=== PATIENT | female | born 1965 | race Caucasian/White ===

== ENCOUNTER 2023-09-17 12:53 | Outpatient (RCR) | payer BC, SELFPAY ==
[2023-09-03] MEDS: PROLASTIN C 80 MG IV (15:32)
[2023-09-03 15:38] VITALS: BP 128/72
[2023-09-10 07:55] VITALS: BP 123/74
[2023-09-10] MEDS: PROLASTIN C 80 MG IV (08:05)
[2023-09-10 08:14] VITALS: BMI 26.8
[2023-09-17 13:30] VITALS: BP 130/51
[2023-09-17] MEDS: PROLASTIN C 80 MG IV (13:30)
== END 2023-09-17 23:59 | disposition home or self-care (01) ==
LOC: OID 12:53
PROVIDERS: ATTENDING PHYSICIAN Internal Medicine Critical Care Medicine; FAMILY PHYSICIAN Family Medicine; OTHER PHYSICIAN Internal Medicine Gastroenterology
DX: E88.01 Alpha-1-antitrypsin deficiency (principal); J44.9 Chronic obstructive pulmonary disease, unspecified; J45.30 Mild persistent asthma, uncomplicated
CPT/HCPCS: 96365; J0256

== ENCOUNTER 2023-10-15 11:24 | Outpatient (RCR) | payer BC, SELFPAY ==
[2023-09-24] MEDS: PROLASTIN C 80 MG IV (11:55)
[2023-09-24 12:01] VITALS: BP 119/89
[2023-10-01 11:35] VITALS: BP 117/61
[2023-10-01] MEDS: PROLASTIN C 80 MG IV (11:46)
[2023-10-01 11:50] VITALS: BMI 26.9
[2023-10-15 11:37] VITALS: BP 106/65
[2023-10-15] MEDS: PROLASTIN C 80 MG IV (12:13)
== END 2023-10-18 23:59 | disposition home or self-care (01) ==
LOC: OID 11:24
PROVIDERS: ATTENDING PHYSICIAN Internal Medicine Critical Care Medicine; FAMILY PHYSICIAN Family Medicine; OTHER PHYSICIAN Internal Medicine Gastroenterology
DX: E88.01 Alpha-1-antitrypsin deficiency (principal); J44.9 Chronic obstructive pulmonary disease, unspecified
CPT/HCPCS: 96365; J0256

== ENCOUNTER 2023-11-12 11:24 | Outpatient (RCR) | payer BC, SELFPAY ==
[2023-10-29 11:30] VITALS: BP 107/63
[2023-10-29] MEDS: PROLASTIN C 80 MG IV (11:38)
[2023-11-05 11:28] VITALS: BP 96/66
[2023-11-05] MEDS: PROLASTIN C 80 MG IV (11:49)
[2023-11-12 11:45] VITALS: BP 99/63
[2023-11-12] MEDS: PROLASTIN C 80 MG IV (12:00)
== END 2023-11-12 14:34 | disposition home or self-care (01) ==
LOC: OID 11:24
PROVIDERS: ATTENDING PHYSICIAN Internal Medicine Critical Care Medicine; FAMILY PHYSICIAN Family Medicine; OTHER PHYSICIAN Internal Medicine Gastroenterology
DX: E88.01 Alpha-1-antitrypsin deficiency (principal); J45.30 Mild persistent asthma, uncomplicated; J44.9 Chronic obstructive pulmonary disease, unspecified
CPT/HCPCS: 96365; J0256

== ENCOUNTER 2023-12-10 11:29 | Outpatient (RCR) | payer BC, SELFPAY ==
[2023-11-19] MEDS: PROLASTIN C 80 MG IV (11:47)
[2023-11-19 11:52] VITALS: BP 107/74
[2023-12-03 11:00] VITALS: BP 117/43
[2023-12-03] MEDS: PROLASTIN C 80 MG IV (11:53)
[2023-12-10 11:35] VITALS: BP 117/63
[2023-12-10 11:45] VITALS: BMI 26.6
[2023-12-10] MEDS: PROLASTIN C 80 MG IV (11:50)
== END 2023-12-11 09:36 | disposition home or self-care (01) ==
LOC: OID 11:29
PROVIDERS: ATTENDING PHYSICIAN Internal Medicine Critical Care Medicine; FAMILY PHYSICIAN Family Medicine; OTHER PHYSICIAN Internal Medicine Gastroenterology
DX: E88.01 Alpha-1-antitrypsin deficiency (principal); J44.9 Chronic obstructive pulmonary disease, unspecified; J45.30 Mild persistent asthma, uncomplicated; Z14.8 Genetic carrier of other disease
CPT/HCPCS: 96365; J0256

== ENCOUNTER 2024-01-14 11:22 | Outpatient (RCR) | payer BC, SELFPAY ==
[2023-12-24 11:28] VITALS: BP 110/68
[2023-12-24] MEDS: PROLASTIN C 80 MG IV (11:41)
[2023-12-31 11:30] VITALS: BP 116/76
[2023-12-31] MEDS: PROLASTIN C 80 MG IV (11:51)
[2023-12-31 11:55] VITALS: BMI 26.6
[2024-01-07 11:35] VITALS: BP 115/79
[2024-01-07] MEDS: PROLASTIN C 80 MG IV (11:57)
[2024-01-07 12:01] VITALS: BMI 26.6
[2024-01-14 11:25] VITALS: BP 145/60; BMI 26.8
[2024-01-14] MEDS: PROLASTIN C 80 MG IV (11:43)
== END 2024-01-15 15:02 | disposition home or self-care (01) ==
LOC: OID 11:22
PROVIDERS: ATTENDING PHYSICIAN Internal Medicine Critical Care Medicine; FAMILY PHYSICIAN Family Medicine; OTHER PHYSICIAN Internal Medicine Gastroenterology
DX: E88.01 Alpha-1-antitrypsin deficiency (principal); J44.9 Chronic obstructive pulmonary disease, unspecified; J45.30 Mild persistent asthma, uncomplicated; Z14.8 Genetic carrier of other disease
CPT/HCPCS: 96365; J0256

== ENCOUNTER 2024-02-11 11:24 | Outpatient (RCR) | payer BC, SELFPAY ==
[2024-02-04 11:30] VITALS: BP 114/60
[2024-02-04] MEDS: PROLASTIN C 80 MG IV (11:52)
[2024-02-04 11:56] VITALS: BMI 26.8
[2024-02-11 11:40] VITALS: BP 134/64
[2024-02-11] MEDS: PROLASTIN C 80 MG IV (11:57)
== END 2024-02-12 08:11 | disposition home or self-care (01) ==
LOC: OID 11:24
PROVIDERS: ATTENDING PHYSICIAN Internal Medicine Critical Care Medicine; FAMILY PHYSICIAN Family Medicine; OTHER PHYSICIAN Internal Medicine Gastroenterology
DX: E88.01 Alpha-1-antitrypsin deficiency (principal); Z14.8 Genetic carrier of other disease; J44.9 Chronic obstructive pulmonary disease, unspecified; J45.30 Mild persistent asthma, uncomplicated
CPT/HCPCS: 96365; J0256

== ENCOUNTER 2024-03-17 11:23 | Outpatient (RCR) | payer BC, SELFPAY ==
[2024-02-18 11:35] VITALS: BP 130/62
[2024-02-18] MEDS: PROLASTIN C 80 MG IV (11:49)
[2024-02-18 12:00] VITALS: BMI 26.8
[2024-02-26 10:25] VITALS: BP 116/77
[2024-02-26] MEDS: PROLASTIN C 80 MG IV (10:44)
[2024-03-17] MEDS: PROLASTIN C 80 MG IV (11:48)
[2024-03-17 12:04] VITALS: BP 107/61
== END 2024-03-17 15:39 | disposition home or self-care (01) ==
LOC: OID 11:23
PROVIDERS: ATTENDING PHYSICIAN Internal Medicine Critical Care Medicine; FAMILY PHYSICIAN Family Medicine; OTHER PHYSICIAN Internal Medicine Gastroenterology
DX: E88.01 Alpha-1-antitrypsin deficiency (principal); Z14.8 Genetic carrier of other disease; J45.30 Mild persistent asthma, uncomplicated; J44.9 Chronic obstructive pulmonary disease, unspecified; J98.4 Other disorders of lung
CPT/HCPCS: 96365; J0256

== ENCOUNTER 2024-04-14 11:27 | Outpatient (RCR) | payer BC, SELFPAY ==
[2024-03-24] MEDS: PROLASTIN C 80 MG IV (12:03)
[2024-03-24 12:08] VITALS: BP 111/60
[2024-03-31 11:51] VITALS: BP 119/69
[2024-03-31] MEDS: PROLASTIN C 80 MG IV (12:04)
[2024-04-14] MEDS: PROLASTIN C 80 MG IV (11:52)
[2024-04-14 11:58] VITALS: BP 128/42
== END 2024-04-15 09:40 | disposition home or self-care (01) ==
LOC: OID 11:27
PROVIDERS: ATTENDING PHYSICIAN Internal Medicine Critical Care Medicine; FAMILY PHYSICIAN Family Medicine; OTHER PHYSICIAN Internal Medicine Gastroenterology
DX: E88.01 Alpha-1-antitrypsin deficiency (principal); Z14.8 Genetic carrier of other disease; J44.9 Chronic obstructive pulmonary disease, unspecified
CPT/HCPCS: 96365; J0256

== ENCOUNTER 2024-05-12 11:22 | Outpatient (RCR) | payer BC, SELFPAY ==
[2024-04-28 11:38] VITALS: BP 116/64
[2024-04-28] MEDS: PROLASTIN C 80 MG IV (11:48)
[2024-05-05 11:30] VITALS: BP 128/69
[2024-05-05] MEDS: PROLASTIN C 80 MG IV (11:49)
[2024-05-05 11:53] VITALS: BMI 26.5
[2024-05-12 11:30] VITALS: BP 118/66
[2024-05-12] MEDS: PROLASTIN C 80 MG IV (11:55)
== END 2024-05-19 23:59 | disposition home or self-care (01) ==
LOC: OID 11:22
PROVIDERS: ATTENDING PHYSICIAN Internal Medicine Critical Care Medicine
DX: E88.01 Alpha-1-antitrypsin deficiency (principal); Z14.8 Genetic carrier of other disease
CPT/HCPCS: 96365; J0256

== ENCOUNTER 2024-06-15 11:22 | Outpatient (RCR) | payer BC, SELFPAY ==
[2024-05-26 11:35] VITALS: BP 104/56
[2024-05-26] MEDS: PROLASTIN C 80 MG IV (11:46)
[2024-06-02 11:35] VITALS: BP 117/72
[2024-06-02] MEDS: PROLASTIN C 80 MG IV (11:45)
[2024-06-15 11:30] VITALS: BP 113/65
[2024-06-15] MEDS: PROLASTIN C 80 MG IV (11:52)
== END 2024-06-17 08:34 | disposition home or self-care (01) ==
LOC: OID 11:22
PROVIDERS: ATTENDING PHYSICIAN Internal Medicine Critical Care Medicine
DX: E88.01 Alpha-1-antitrypsin deficiency (principal); Z14.8 Genetic carrier of other disease
CPT/HCPCS: 96365; J0256

== ENCOUNTER 2024-07-07 11:19 | Outpatient (RCR) | payer BC, SELFPAY ==
[2024-06-22] MEDS: PROLASTIN C 80 MG IV (10:15)
[2024-06-22 10:19] VITALS: BP 107/68
[2024-06-22 11:10] LABS: ALT (SGPT) 30 U/L (0-35); AST (SGOT) 33 U/L (14-36); Albumin 4.6 g/dl (3.5-5.0); Alkaline Phosphatase 65 U/L (38-126); Direct Bilirubin 0.3 mg/dl (0.0-0.4); HDL Cholesterol 73 mg/dl; LDL Cholesterol, Calculated 177 mg/dl; Total Bilirubin 1.2 mg/dl (0.2-1.3); Total Cholesterol 269 mg/dl (50-199); Total Protein 7.5 g/dl (6.3-8.2); Triglyceride 98 mg/dl (10-149); Very Low Density Lipoprotein 19 mg/dl (0-30)
[2024-06-22 11:39] LABS: TSH Reflex To Free T4 1.43 uIU/ml (0.47-4.68)
[2024-06-30 11:25] VITALS: BP 101/62
[2024-06-30] MEDS: PROLASTIN C 80 MG IV (11:43)
[2024-07-07 11:30] VITALS: BP 127/51
[2024-07-07] MEDS: PROLASTIN C 80 MG IV (11:42)
== END 2024-07-08 10:56 | disposition home or self-care (01) ==
LOC: OID 11:19
PROVIDERS: Family Medicine; ATTENDING PHYSICIAN Internal Medicine Critical Care Medicine
DX: E88.01 Alpha-1-antitrypsin deficiency (principal); Z14.8 Genetic carrier of other disease
CPT/HCPCS: 36415; 80061; 80076; 84443; 96365; J0256

== ENCOUNTER 2024-08-18 11:23 | Outpatient (RCR) | payer BC, SELFPAY ==
[2024-07-21] MEDS: PROLASTIN C 80 MG IV (11:39)
[2024-07-21 11:40] VITALS: BP 126/52
[2024-07-29] MEDS: PROLASTIN C 80 MG IV (11:51)
[2024-07-29 11:55] VITALS: BP 112/60
[2024-08-04] MEDS: PROLASTIN C 80 MG IV (11:56)
[2024-08-04 12:01] VITALS: BP 126/74
[2024-08-11] MEDS: PROLASTIN C 80 MG IV (12:05)
[2024-08-11 12:09] VITALS: BP 121/57
[2024-08-18 11:30] VITALS: BP 118/66
[2024-08-18] MEDS: PROLASTIN C 80 MG IV (11:44)
== END 2024-08-19 09:38 | disposition home or self-care (01) ==
LOC: OID 11:23
PROVIDERS: ATTENDING PHYSICIAN Internal Medicine Critical Care Medicine; FAMILY PHYSICIAN Family Medicine
DX: E88.01 Alpha-1-antitrypsin deficiency (principal); Z14.8 Genetic carrier of other disease
CPT/HCPCS: 96365; J0256

== ENCOUNTER 2024-09-15 11:30 | Outpatient (RCR) | payer BC, SELFPAY ==
[2024-09-01 11:35] VITALS: BP 102/65
[2024-09-01] MEDS: PROLASTIN C 80 MG IV (11:42)
[2024-09-01 11:45] VITALS: BMI 27.7
[2024-09-08 11:40] VITALS: BP 115/87
[2024-09-08] MEDS: PROLASTIN C 80 MG IV (11:53)
[2024-09-08 12:00] VITALS: BMI 27.7
[2024-09-15 11:45] VITALS: BP 107/64
[2024-09-15] MEDS: PROLASTIN C 80 MG IV (11:54)
[2024-09-15 11:58] VITALS: BMI 27.6
== END 2024-09-16 08:39 | disposition home or self-care (01) ==
LOC: OID 11:30
PROVIDERS: ATTENDING PHYSICIAN Internal Medicine Critical Care Medicine; FAMILY PHYSICIAN Family Medicine
DX: E88.01 Alpha-1-antitrypsin deficiency (principal); Z14.8 Genetic carrier of other disease
CPT/HCPCS: 96365; J0256

== ENCOUNTER 2024-10-13 11:27 | Outpatient (RCR) | payer BC, SELFPAY ==
[2024-09-23 11:40] VITALS: BP 105/69
[2024-09-23] MEDS: PROLASTIN C 80 MG IV (11:46)
[2024-10-06 11:35] VITALS: BP 107/67
[2024-10-06] MEDS: PROLASTIN C 80 MG IV (11:52)
[2024-10-06 11:56] VITALS: BMI 27.6
[2024-10-13 11:36] VITALS: BP 125/65
[2024-10-13] MEDS: PROLASTIN C 80 MG IV (11:51)
== END 2024-10-14 08:18 | disposition home or self-care (01) ==
LOC: OID 11:27
PROVIDERS: ATTENDING PHYSICIAN Internal Medicine Critical Care Medicine; FAMILY PHYSICIAN Family Medicine
DX: E88.01 Alpha-1-antitrypsin deficiency (principal); Z14.8 Genetic carrier of other disease
CPT/HCPCS: 96365; J0256

== ENCOUNTER 2024-11-10 11:21 | Outpatient (RCR) | payer BC, SELFPAY ==
[2024-10-20 11:41] VITALS: BP 121/70
[2024-10-20] MEDS: PROLASTIN C 80 MG IV (11:54)
[2024-11-03 11:49] VITALS: BP 105/57
[2024-11-03] MEDS: PROLASTIN C 80 MG IV (12:01)
[2024-11-03 12:26] VITALS: BP 125/66
[2024-11-10 11:35] VITALS: BP 105/63
[2024-11-10] MEDS: PROLASTIN C 80 MG IV (11:47)
== END 2024-11-11 10:57 | disposition home or self-care (01) ==
LOC: OID 11:21
PROVIDERS: ATTENDING PHYSICIAN Internal Medicine Critical Care Medicine; FAMILY PHYSICIAN Family Medicine
DX: E88.01 Alpha-1-antitrypsin deficiency (principal); Z14.8 Genetic carrier of other disease
CPT/HCPCS: 96365; J0256

== ENCOUNTER 2024-12-08 11:14 | Outpatient (RCR) | payer BC, SELFPAY ==
[2024-11-24 11:49] VITALS: BP 116/69
[2024-11-24] MEDS: PROLASTIN C 80 MG IV (12:04)
[2024-12-08] MEDS: PROLASTIN C 80 MG IV (11:36)
[2024-12-08 11:41] VITALS: BP 108/61
== END 2024-12-15 15:26 | disposition home or self-care (01) ==
LOC: OID 11:14
PROVIDERS: ATTENDING PHYSICIAN Internal Medicine Critical Care Medicine; FAMILY PHYSICIAN Family Medicine
DX: E88.01 Alpha-1-antitrypsin deficiency (principal); Z14.8 Genetic carrier of other disease
CPT/HCPCS: 96365; J0256

== ENCOUNTER 2025-01-12 11:24 | Outpatient (RCR) | payer BC, SELFPAY ==
[2024-12-22] MEDS: PROLASTIN C 80 MG IV (11:54)
[2024-12-22 11:59] VITALS: BP 107/76
[2024-12-30 11:30] VITALS: BP 114/71
[2024-12-30] MEDS: PROLASTIN C 80 MG IV (11:54)
[2025-01-05] MEDS: PROLASTIN C 80 MG IV (11:46)
[2025-01-05 12:05] VITALS: BP 101/69
[2025-01-12 11:34] VITALS: BP 112/60
[2025-01-12] MEDS: PROLASTIN C 80 MG IV (11:52)
== END 2025-01-13 08:40 | disposition home or self-care (01) ==
LOC: OID 11:24
PROVIDERS: ATTENDING PHYSICIAN Internal Medicine Critical Care Medicine; FAMILY PHYSICIAN Family Medicine
DX: E88.01 Alpha-1-antitrypsin deficiency (principal); Z14.8 Genetic carrier of other disease
CPT/HCPCS: 96365; J0256

== ENCOUNTER 2025-02-16 11:25 | Outpatient (RCR) | payer BC, SELFPAY ==
[2025-01-26 11:45] VITALS: BP 101/63
[2025-01-26] MEDS: PROLASTIN C 80 MG IV (12:00)
[2025-02-02 11:36] VITALS: BP 104/70
[2025-02-02] MEDS: PROLASTIN C 80 MG IV (11:56)
[2025-02-16 11:40] VITALS: BP 99/66
[2025-02-16] MEDS: PROLASTIN C 80 MG IV (11:45)
[2025-02-16 11:57] VITALS: BMI 26.2
[2025-02-16] MEDS: PROLASTIN C IV (13:39)
== END 2025-02-16 23:59 | disposition home or self-care (01) ==
LOC: OID 11:25
PROVIDERS: ATTENDING PHYSICIAN Internal Medicine Critical Care Medicine; FAMILY PHYSICIAN Family Medicine
DX: E88.01 Alpha-1-antitrypsin deficiency (principal); Z14.8 Genetic carrier of other disease
CPT/HCPCS: 96365; J0256

== ENCOUNTER 2025-03-16 11:26 | Outpatient (RCR) | payer BC, SELFPAY ==
[2025-02-23 11:35] VITALS: BP 119/60
[2025-02-23] MEDS: PROLASTIN C 80 MG IV (11:52)
[2025-03-09 11:34] VITALS: BP 108/64
[2025-03-09] MEDS: PROLASTIN C 80 MG IV (11:52)
[2025-03-09 12:23] VITALS: BP 99/46
[2025-03-16] MEDS: PROLASTIN C 80 MG IV (12:06)
[2025-03-16 12:09] VITALS: BP 129/73
[2025-03-16 12:16] VITALS: BP 129/73
== END 2025-03-17 11:22 | disposition home or self-care (01) ==
LOC: OID 11:26
PROVIDERS: ATTENDING PHYSICIAN Internal Medicine Critical Care Medicine; FAMILY PHYSICIAN Family Medicine
DX: E88.01 Alpha-1-antitrypsin deficiency (principal); Z14.8 Genetic carrier of other disease
CPT/HCPCS: 96365; J0256

== ENCOUNTER 2025-04-13 11:25 | Outpatient (RCR) | payer BC, SELFPAY ==
[2025-03-30 11:30] VITALS: BP 105/65
[2025-03-30] MEDS: PROLASTIN C 80 MG IV (11:58)
[2025-04-06 11:35] VITALS: BP 106/50
[2025-04-06] MEDS: PROLASTIN C 80 MG IV (11:46)
[2025-04-13] MEDS: PROLASTIN C 80 MG IV (11:44)
[2025-04-13 11:54] VITALS: BP 114/68
== END 2025-04-14 08:41 | disposition home or self-care (01) ==
LOC: OID 11:25
PROVIDERS: ATTENDING PHYSICIAN Internal Medicine Critical Care Medicine; FAMILY PHYSICIAN Family Medicine
DX: E88.01 Alpha-1-antitrypsin deficiency (principal); Z14.8 Genetic carrier of other disease
CPT/HCPCS: 96365; J0256

== ENCOUNTER 2025-05-18 11:21 | Outpatient (RCR) | payer BC, SELFPAY ==
[2025-04-20 11:30] VITALS: BP 98/76
[2025-04-20] MEDS: PROLASTIN C 80 MG IV (11:46)
[2025-05-04 11:36] VITALS: BP 111/58
[2025-05-04] MEDS: PROLASTIN C 80 MG IV (11:46)
[2025-05-11] MEDS: PROLASTIN C 80 MG IV (11:55)
[2025-05-11 11:57] VITALS: BP 121/69
[2025-05-18] MEDS: PROLASTIN C 80 MG IV (11:40)
[2025-05-18 11:44] VITALS: BP 115/66
== END 2025-05-19 09:40 | disposition home or self-care (01) ==
LOC: OID 11:21
PROVIDERS: ATTENDING PHYSICIAN Internal Medicine Critical Care Medicine; FAMILY PHYSICIAN Family Medicine
DX: E88.01 Alpha-1-antitrypsin deficiency (principal); Z14.8 Genetic carrier of other disease
CPT/HCPCS: 96365; J0256

== ENCOUNTER 2025-06-08 11:42 | Outpatient (RCR) | payer BC, SELFPAY ==
[2025-05-25 11:35] VITALS: BP 104/73
[2025-05-25] MEDS: PROLASTIN C 80 MG IV (11:47)
[2025-06-01 11:35] VITALS: BP 115/50
[2025-06-01] MEDS: PROLASTIN C 80 MG IV (11:49)
[2025-06-08 11:40] VITALS: BP 112/67
[2025-06-08] MEDS: PROLASTIN C 80 MG IV (12:02)
== END 2025-06-09 10:11 | disposition home or self-care (01) ==
LOC: OID 11:42
PROVIDERS: ATTENDING PHYSICIAN Internal Medicine Critical Care Medicine; FAMILY PHYSICIAN Family Medicine
DX: E88.01 Alpha-1-antitrypsin deficiency (principal); Z14.8 Genetic carrier of other disease
CPT/HCPCS: 96365; J0256

== ENCOUNTER 2025-07-06 11:29 | Outpatient (RCR) | payer BC, SELFPAY ==
[2025-06-29 11:45] VITALS: BP 113/69
[2025-06-29] MEDS: PROLASTIN C 80 MG IV (11:56)
[2025-06-29 12:01] VITALS: BMI 27.1
[2025-07-06 11:36] VITALS: BP 129/57
[2025-07-06] MEDS: PROLASTIN C 80 MG IV (11:44)
== END 2025-07-19 23:59 | disposition home or self-care (01) ==
LOC: OID 11:29
PROVIDERS: ATTENDING PHYSICIAN Internal Medicine Critical Care Medicine; FAMILY PHYSICIAN Family Medicine
DX: E88.01 Alpha-1-antitrypsin deficiency (principal); Z14.8 Genetic carrier of other disease
CPT/HCPCS: 96365; J0256